=== PATIENT | female | born 1965 | race Caucasian/White ===

== ENCOUNTER 2022-02-12 15:29 | Emergency (ER) | payer OTHER, MEDICAID ==
[~2022-02-12] VITALS: Ht 154.9 cm; Wt 68.9 kg
--- NOTE | 2022-02-12 15:30 | NUR ---
PATIENT BIBA TAKEN TO BED 12.
[2022-02-12 15:42] VITALS: BP 134/78
--- NOTE | 2022-02-12 16:00 | NUR ---
56 Y/O FEMALE BIBA FROM [facility]. PER EMS REPORT PT HAS NOT EATEN X1 DAY. SPOKE WITH CHARGE NURSE AT FACILITY WHO REPORTS A "CHANGE IN MENTAL STATUS". STATES PT REFUSED ALL MEALS/FLUIDS X TODAY WHICH IS "ABNORMAL". DENIED NVD. PT IS NONVERBAL, A/O X 0, BASELINE. FACILITY NURSE STATES PT CAN FEED SELF WITH CUEING AND SOME ASSISTANCE. PREVIOUSLY HAD GT IN PLACE WHICH WAS REMOVED A FEW MONTHS AGO. PER EMS PT HAS HX OF SEIZURES, LAST SEIZURE 2 DAYS AGO LASTING 2 MIN. SEIZURES PRECAUTIONS IN PLACE, BRYANT SIDE RAILS UP, BED IN LOW. NKA PMH: CEREBRAL PALSY, TOURETTES, ORGANIC BRAIN SYNDROME
--- NOTE | 2022-02-12 16:14 | NUR ---
LAB AT BEDSIDE
[2022-02-12 16:32] LABS: BASOPHILS % (AUTO) 0.5 % (0.0-2.0); EOSINOPHILS # (AUTO) 0.1 K/uL (0-0.4); EOSINOPHILS % (AUTO) 0.9 % (0.0-4.0); HEMATOCRIT 42.5 % (36-48); HEMOGLOBIN 14.2 g/dL (12.0-16.0); LYMPHOCYTES # (AUTO) 1.6 K/uL (2.5-16.5); LYMPHOCYTES % (AUTO) 26.8 % (20.5-51.1); MEAN CORPUSCULAR HEMOGLOBIN 29 pg (27-31); MEAN CORPUSCULAR HGB CONC 33 g/dL (33-37); MONOCYTES # (AUTO) 0.5 K/uL (0.8-1.0); MONOCYTES % (AUTO) 8.2 % (1.7-9.3); NEUTROPHILS # (AUTO) 3.7 K/uL (1.8-7.7); NEUTROPHILS % (AUTO) 63.6 % (42.2-75.2); PLATELET COUNT (AUTO) 291 K/uL (140-450); RED BLOOD CELL COUNT(AUTO) 4.83 MIL/uL (4.20-5.40); RED CELL DISTRIBUTION WIDTH 14.3 % (11.6-13.7); WHITE BLOOD COUNT (AUTO) 5.8 K/uL (4.8-10.8)
[2022-02-12 16:49] LABS: ALBUMIN 3.9 g/dL (3.4-5.0); ANION GAP 12.4 (8-16); CARBON DIOXIDE 29.7 mmol/L (21-32); CREATININE 0.7 mg/dL (0.6-1.3); POTASSIUM 4.1 mmol/L (3.5-5.1); TOTAL BILIRUBIN 0.3 mg/dL (0.0-1.0)
--- NOTE | 2022-02-12 17:58 | NUR ---
urine sample collected and handed to film laboratory technicianLiset tang
--- NOTE | 2022-02-12 18:31 | NUR ---
PT RESTING IN BED WITH EYES OPEN, NO VISIBLE SIGNS OF PAIN OR DISTRESS, PLACED IN GOWN, BREIF CHANGED, BED IN LOW, BRYANT SIDE RAILS UP WITH SEIZURE PADS IN PLACE.
--- NOTE | 2022-02-12 19:21 | NUR ---
Pt report given to CLEOPATRA Croft. Transfer of care at this time.
[2022-02-12] MEDS ORDERED: ACETAMINOPHEN EXTRA STRENGTH 500 MG TAB PO ONE (19:55)
[2022-02-12] MEDS ORDERED: cephALEXin 500 MG CAP PO ONE (19:55)
[2022-02-12] MEDS ORDERED: CEPH-588 PO (19:59)
[2022-02-12] MEDS ORDERED: CRUSHER, PILL MC ONE (20:34)
--- NOTE | 2022-02-12 20:42 | NUR ---
PT MEDICATED PER [facility]MD ORDERS
--- NOTE | 2022-02-12 20:43 | NUR ---
PT CONSUMED 100% OF APPLE SAUCE.
[2022-02-12 21:23] LABS: APPEARANCE,URINE CLEAR (CLEAR); BILIRUBIN,URINE NEGATIVE (NEGATIVE); BLOOD, URINE NEGATIVE (NEGATIVE); COLOR,URINE YELLOW (YELLOW); LEUKOCYTE ESTERASE ,URINE NEGATIVE (NEGATIVE); NITRITE, URINE NEGATIVE (NEGATIVE); UGLUCOSE NEGATIVE (NEGATIVE)
--- NOTE | 2022-02-12 21:49 | NUR ---
SPOKE TO JENNIFER AT [facility]. GAVE REPORT TO JENNIFER WHO SAID SHE WOULD ARRANGE FOR TRANSPORTATION.
[2022-02-12 23:57] VITALS: BP 142/101
--- NOTE | 2022-02-12 23:58 | NUR ---
Patient discharged with v/s stable. Written and verbal after care instructions given and explained. Patient alert, oriented and verbalized understanding of instructions. Wheel Chair Assisted with by caregiver. All questions addressed prior to discharge. ID band removed. Patient advised to follow up with PMD. Rx of KEFLEX given. Patient educated on indication of medication including possible reaction and side effects. Opportunity to ask questions provided and answered. VSS, A/OX4, AMBULATORY, UNLABORED BREATHING, AND CALM DEMEANOR.
== END 2022-02-12 23:58 | disposition home or self-care (01) ==
LOC: MED 15:29
DX: R10.9 Unspecified abdominal pain (principal); G40.909 Epilepsy, unspecified, not intractable, without status epilepticus; G80.9 Cerebral palsy, unspecified; F95.2 Tourette's disorder; Z98.890 Other specified postprocedural states
CPT/HCPCS: 36415; 80053; 81003; 83690; 85025; 99285